=== PATIENT | male | born 1940 | race Caucasian/White ===

== ENCOUNTER 2017-01-27 07:35 | Emergency (ER) | payer OTHER ==
[~2017-01-27] VITALS: Ht 170.2 cm; Wt 104.3 kg
[2017-01-27 08:47] LABS: Basophils # (auto) 0 uL; Basophils % (auto) 0.5 % (0.0-2.0); Eosinophils # (auto) 0.2 uL; Hematocrit 43.2 % (41.0-53.0); Hemoglobin 14.5 g/dL (13.5-17.5); Lymphocytes # (auto) 1.1 uL; Mean Corpuscular Hemoglobin 28.8 pg (28.0-32.0); Mean Corpuscular Hgb Conc. 33.6 g/dL (32.0-36.0); Mean Corpuscular Volume 85.6 fL (80.0-100.0); Mean Platelet Volume 8.5 fL (7.4-10.4); Monocytes # (auto) 0.5 uL; Neutrophils % (auto) 68.5 % (37.0-80.0); Platelet Count (auto) 181 10^3/uL (140-450); Red Cell Distribution Width 13.9 % (11.6-16.0); White Blood Cell 5.8 10^3/uL (4.4-10.8)
[2017-01-27 09:11] LABS: Albumin 3.7 g/dL (3.4-5.0); BUN/Creatinine Ratio 16.5; Calcium 8.4 mg/dL (8.5-10.1); Potassium 4.1 mmol/L (3.5-5.1)
[2017-01-27 09:27] LABS: Bilirubin, Total 0.2 mg/dL (0.2-1.0)
[2017-01-27] MEDS ORDERED: ENOXAPARIN SOD 100 MG/1 ML SYRINGE SC ONE (09:45)
[2017-01-27] MEDS ORDERED: NITROGLYCERIN 0.4 MG SL TAB SL ONE (09:45)
[2017-01-27] MEDS ORDERED: ASPirin 81 mg TAB PO ONE (09:45)
[2017-01-27 14:30] VITALS: BP 148/86
== END 2017-01-27 14:43 | disposition home or self-care (01) ==
LOC: ER 07:36
DX: I24.9 Acute ischemic heart disease, unspecified (principal); I10 Essential (primary) hypertension; I25.2 Old myocardial infarction; M19.90 Unspecified osteoarthritis, unspecified site; Z95.1 Presence of aortocoronary bypass graft
CPT/HCPCS: 36415; 70450; 71010; 80053; 82962; 84484; 85025; 93005; 96372; 99285; J1650